=== PATIENT | female | born 1960 | race African-American/Black ===

== ENCOUNTER 2017-12-13 07:32 | Day surgery (SDC) | payer OTHER ==
[~2017-12-13] VITALS: Ht 167.6 cm; Wt 99.8 kg
[~2017-12-13 07:32] MED LIST: LITE COAT ASPI325 M1 PO; ROXICODONE5 MG PO; [UNRECOGNIZED DRUG - OTHER]
[2017-12-13] MEDS ORDERED: DAILY VALUE1 EACH PO (08:35)
[2017-12-13 08:37] VITALS: BP 152/93
[2017-12-13 14:15] VITALS: BP 158/82
[2017-12-13 15:15] VITALS: BP 177/94
[2017-12-13 17:30] VITALS: BP 147/75
[2017-12-13 19:55] VITALS: BP 158/79
== END 2017-12-13 20:10 | disposition home or self-care (01) ==
LOC: SDC
DX: S82.851A Displaced trimalleolar fracture of right lower leg, initial encounter for closed fracture (principal); W10.9XXA Fall (on) (from) unspecified stairs and steps, initial encounter; I10 Essential (primary) hypertension; Z88.8 Allergy status to other drugs, medicaments and biological substances
CPT/HCPCS: 73610; 76000; 93005; C1713; C1769; J0131; J0330; J0690; J1100; J2250; J2405; J2795; J3010; Q0175